=== PATIENT | female | born 1990 | race Two or more races ===

== ENCOUNTER 2024-03-18 02:10 | Emergency (ER) | payer MEDICAID ==
[~2024-03-18] VITALS: Ht 152.4 cm; Wt 55.6 kg
[2024-03-18 02:20] VITALS: BP 112/43; PULSE 99; RESP 18; O2SAT 97
== END 2024-03-18 03:24 | disposition left against medical advice (07) ==
LOC: ER 02:10
DX: R51.9 Headache, unspecified (principal); R05.9 Cough, unspecified; Z53.21 Procedure and treatment not carried out due to patient leaving prior to being seen by health care provider